=== PATIENT | male | born 1945 | race Native Hawaiian/Other Pacific Islander ===

== ENCOUNTER 2016-12-13 09:10 | Day surgery (SDC) | payer OTHER, BC ==
[~2016-12-13] VITALS: Ht 30.5 cm; Wt 0.5 kg
== END 2016-12-13 13:15 | disposition home or self-care (01) ==
LOC: OR 09:10
PROC: 08RK3JZ Replacement of Left Lens with Synthetic Substitute, Percutaneous Approach (ICD-10-PCS; principal; 2016-12-13)
DX: H25.812 Combined forms of age-related cataract, left eye (principal)
CPT/HCPCS: 66984; J0171; V2632

== ENCOUNTER 2017-01-17 10:48 | Day surgery (SDC) | payer OTHER, BC | END 2017-01-17 13:16 | disposition home or self-care (01) | LOC: OR 10:48 | PROC: 08RJ3JZ Replacement of Right Lens with Synthetic Substitute, Percutaneous Approach (ICD-10-PCS; principal; 2017-01-17) | DX: H25.811 Combined forms of age-related cataract, right eye (principal) | CPT/HCPCS: 66984; V2632 ==